=== PATIENT | male | born 1945 | race Caucasian/White ===

== ENCOUNTER 2017-09-03 15:45 | Emergency (ER) | payer MEDICARE ==
[~2017-09-03] VITALS: Ht 172.7 cm; Wt 81.0 kg
[~2017-09-03 15:45] MED LIST: CLIN300C85 PO; FLUD0.1T PO; HYDR10TA PO; HYDR20TA PO; LORA10TA7 PO; RIVA20TA PO; [UNRECOGNIZED DRUG - CODE] IM
[2017-09-03 16:27] LABS: BASOPHILS % (AUTO) 0.1 % (0-1); EOSINOPHILS # (AUTO) 0.1 X10'3 (0-0.9); EOSINOPHILS % (AUTO) 1.3 % (0-6); HEMATOCRIT 47.7 % (42.0-52.0); HEMOGLOBIN 15.9 g/dl (14.0-17.9); LYMPHOCYTES # (AUTO) 1.6 X10'3 (1.1-4.8); LYMPHOCYTES % (AUTO) 25.7 % (21-51); MEAN CORPUSCULAR HEMOGLOBIN 29.4 PG (27.0-31.0); MEAN CORPUSCULAR HGB CONC 33.4 % (33.0-36.5); MEAN PLATELET VOLUME 7.7 FL (7.4-10.4); MONOCYTES # (AUTO) 0.4 X10'3 (0-0.9); MONOCYTES % (AUTO) 6.5 % (2-12); NEUTROPHILS % (AUTO) 66.4 % (42-75); PLATELET COUNT 201 X10'3 (140-440); RED BLOOD COUNT 5.42 X10'6 (4.70-6.10); RED CELL DISTRIBUTION WIDTH 14.9 % (11.5-14.5)
[2017-09-03 16:29] LABS: COLOR,URINE YELLOW (Yellow); GLUCOSE, URINE NEGATIVE (Neg); KETONES,URINE NEGATIVE (Neg); LEUKOCYTE ESTERASE ,URINE LARGE (Neg); NITRITES, URINE POSITIVE (Neg); OCCULT BLOOD,URINE LARGE (Neg); PROTEIN,URINE NEGATIVE (Neg); UROBILINOGEN,URINE 0.2 E.U/dL (0.2-1.0)
[2017-09-03 16:30] LABS: CLARITY,URINE SLIGHTLY CLOUDY (Clear); UA COLLECTION TYPE VOIDED
[2017-09-03 16:36] LABS: BACTERIA,URINE 1+ /HPF (Neg); RBC,URINE TNTC /HPF (0-2); SQUAMOUS EPITHELIAL CELL,UR FEW /LPF (FEW); WBC CLUMPS,URINE MODERATE /HPF (NEGATIVE); WBC,URINE TNTC /HPF (0-4)
[2017-09-03 16:41] LABS: ALANINE AMINOTRANSFERASE 32 U/L (12-78); ALBUMIN 3.3 G/DL (3.4-5.0); ALBUMIN/GLOBULIN RATIO 0.7 (1.1-1.5); ALKALINE PHOSPHATASE 131 IU/L (46-116); ANION GAP 13 (8-16); ASPARTATE AMINO TRANSFERASE 27 U/L (10-37); BILIRUBIN,TOTAL 0.6 MG/DL (0.1-1.0); BLOOD UREA NITROGEN 17 MG/DL (7-18); CALCIUM 9.2 MG/DL (8.5-10.1); CHLORIDE 101 MMOL/L (99-107); CREATININE 1.13 MG/DL (0.60-1.10); GLUCOSE 109 MG/DL (70-104); POTASSIUM 3.9 MMOL/L (3.5-5.1); SODIUM 140 MMOL/L (135-145); TOTAL CARBON DIOXIDE 26.5 MMOL/L (24-32); TOTAL PROTEIN 8.1 G/DL (6.4-8.2); eGFR 64 ML/MIN
[2017-09-03 16:51] LABS: MAGNESIUM 2.1 MG/DL (1.5-2.4)
[2017-09-03] MEDS ORDERED: sodium chloride 3% IV.soln 500 ML IV SCH (21:00)
[2017-09-03] MEDS ORDERED: niCARDipine-NS 40mg/200ml IVPB 200 ML IV SCH (21:00)
[2017-09-03] MEDS ORDERED: HUMAN PROTHROMBIN COMPLEX PCC IV ONE (21:00)
[2017-09-03] MEDS ORDERED: sodium chloride 3% IV.soln 500 ML IV ONE (21:51)
[2017-09-03 22:22] LABS: INR 1.1 INR; PARTIAL THROMBOPLASTIN TIME 33 SECONDS (22-32); PROTHROMBIN TIME 10.9 SECONDS (9.0-12.0)
[2017-09-03 22:35] VITALS: BP 151/88
== END 2017-09-03 22:38 | disposition short-term general hospital (02) ==
LOC: ER 15:46
DX: I61.4 Nontraumatic intracerebral hemorrhage in cerebellum (principal); D68.51 Activated protein C resistance; E27.49 Other adrenocortical insufficiency; Z86.718 Personal history of other venous thrombosis and embolism; Z79.01 Long term (current) use of anticoagulants; Z79.899 Other long term (current) drug therapy
CPT/HCPCS: 36415; 70450; 71045; 80053; 81001; 83735; 83880; 84439; 84443; 84484; 85025; 85610; 85730; 87077; 87088; 87186; 93005; 99291; J3490